=== PATIENT | male | born 2000 | race Caucasian/White ===

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

== ENCOUNTER → 2021-04-17 | Outpatient (REF) | payer OTHER | LOC: M LAB REF 12:54 | PROVIDERS: ATTEND Specialist | DX: B34.9 Viral infection, unspecified (principal) ==

== ENCOUNTER → 2021-04-24 | Outpatient (REF) | payer OTHER | LOC: M LAB REF 12:55 | PROVIDERS: ATTEND Specialist | DX: R11.10 Vomiting, unspecified (principal) ==

== ENCOUNTER 2023-12-27 06:48 | Emergency (ER) | payer BC, OTHER ==
[~2023-12-27] VITALS: Ht 177.8 cm; Wt 162.3 kg
[2023-12-27] MEDS ORDERED: diphenhydrAMINE 50MG/ML VIAL IV ONE (08:00)
[2023-12-27] MEDS ORDERED: KETOROLAC 30 MG/ML 1ML VIAL IV ONE (08:00)
[2023-12-27] MEDS ORDERED: NS 1,000 ML IV ONE ×2 (08:00)
[2023-12-27] MEDS ORDERED: METOCLOPRAMIDE INJ 10MG/2ML VIAL IV ONE (08:00)
[2023-12-27 09:12] LABS: BASO # 0.1 10^3/uL (0.0-0.2); EOS # 0.3 10^3/uL (0.0-0.5); EOS % 5.1 % (0.0-3.0); HEMATOCRIT 44.3 % (42.0-52.0); LYMPH # 1.5 10^3/uL (1.5-5.0); LYMPH % 23.7 % (24.0-44.0); MEAN CORPUSCULAR HEMOGLOBIN 29.6 pg (27.0-33.0); MEAN CORPUSCULAR HGB CONC 33.9 g/dl (32.0-36.5); MEAN CORPUSCULAR VOLUME 87.4 fl (80.0-96.0); MONO # 0.5 10^3/uL (0.0-0.8); MONO % 8.3 % (2.0-8.0); NEUTROPHILS # 3.8 10^3/uL (1.5-8.5); NEUTROPHILS % 61.6 % (36.0-66.0); PLATELET COUNT, AUTOMATED 232 10^3/uL (150-450); RED BLOOD COUNT 5.07 10^6/uL (4.30-6.10); WHITE BLOOD COUNT 6.1 10^3/uL (4.0-10.0)
[2023-12-27 09:18] LABS: ERYTHROCYTE SEDIMENTATION RATE 12 mm/hr (0-15)
[2023-12-27 09:35] LABS: LIPASE 47 U/L (12-53)
[2023-12-27 09:38] LABS: ALKALINE PHOSPHATASE 64 U/L (46-116); ALT/SGPT 56 U/L (7.0-40); AST/SGOT 33 U/L (<34); BILIRUBIN,DIRECT 0.4 MG/DL (<0.4); BILIRUBIN,TOTAL 1.1 MG/DL (0.3-1.2); BLOOD UREA NITROGEN 14 MG/DL (9-23); CALCIUM LEVEL 9.2 MG/DL (8.5-10.1); CARBON DIOXIDE LEVEL 28 MMOL/L (20-31); CHLORIDE LEVEL 106 MMOL/L (98-107); CREATININE FOR GFR 0.85 MG/DL (0.70-1.30); GLOMERULAR FILTRATION RATE > 60.0 (>60); GLUCOSE, FASTING 101 MG/DL (60-100); POTASSIUM SERUM 4.5 MMOL/L (3.5-5.1); SODIUM LEVEL 138 MMOL/L (136-145); TOTAL PROTEIN 7.4 G/DL (5.7-8.2)
[2023-12-27 09:40] LABS: FREE T4 1.25 NG/DL (0.89-1.76); THYROID STIMULATING HORMONE 4.473 uIU/ML (0.55-4.78)
[2023-12-27] MEDS ORDERED: ISOVUE-370 76% 100ML VIAL As Ordered ONE (09:52)
[2023-12-27] MEDS ORDERED: ONDA4TAB6 PO (10:30)
[2023-12-27] MEDS ORDERED: ONDANSETRON 4MG 2ML VIAL IV ONE (10:30)
[2023-12-27 11:20] VITALS: BP 118/68; TEMP 97.8; O2SAT 99
== END 2023-12-27 11:22 | disposition home or self-care (01) ==
LOC: M ED 06:48
DX: R51.9 Headache, unspecified (principal); R11.2 Nausea with vomiting, unspecified; R19.7 Diarrhea, unspecified; R05.9 Cough, unspecified; Z90.89 Acquired absence of other organs; Z88.1 Allergy status to other antibiotic agents; Z11.52 Encounter for screening for COVID-19
CPT/HCPCS: 70450; 70496; 70498; 72125; 80048; 80076; 83690; 84439; 84443; 85025; 85652; 87486; 87581; 87633; 87798; 96361; 96374; 96375; 99284; J1200; J1885; J2405; J2765; Q9967

== ENCOUNTER → 2024-11-28 | Outpatient (REF) | payer BC ==
[~2024-11-28] MED LIST: ONDA-282 PO; PEPC1TAB5 PO
== END ==
LOC: M LAB REF 13:35
PROVIDERS: ATTEND Physician Assistant Medical
DX: B34.9 Viral infection, unspecified (principal)

== ENCOUNTER 2024-11-29 20:53 | Emergency (ER) | payer BC ==
[~2024-11-29] VITALS: Ht 182.9 cm; Wt 117.9 kg
[~2024-11-29 20:53] MED LIST changes: -PEPC1TAB5 PO
[2024-11-29 21:28] LABS: BASO % 0.4 % (0.0-1.0); EOS % 0.2 % (0.0-3.0); HEMATOCRIT 41.8 % (42.0-52.0); HEMOGLOBIN 14.4 g/dl (13.5-17.5); LYMPH # 1.2 10^3/uL (1.5-5.0); LYMPH % 12.9 % (24.0-44.0); MEAN CORPUSCULAR HEMOGLOBIN 29.6 pg (27.0-33.0); MEAN CORPUSCULAR HGB CONC 34.4 g/dl (32.0-36.5); MONO # 1.2 10^3/uL (0.0-0.8); MONO % 13.4 % (2.0-8.0); NEUTROPHILS # 6.7 10^3/uL (1.5-8.5); NEUTROPHILS % 72.9 % (36.0-66.0); PLATELET COUNT, AUTOMATED 248 10^3/uL (150-450); RED BLOOD COUNT 4.86 10^6/uL (4.30-6.10); WHITE BLOOD COUNT 9.2 10^3/uL (4.0-10.0)
[2024-11-29 21:56] LABS: LIPASE 46 U/L (12-53)
[2024-11-29 21:57] LABS: AMYLASE 29 U/L (30-118)
[2024-11-29 21:58] LABS: ALBUMIN 3.8 G/DL (3.2-5.2); ALKALINE PHOSPHATASE 111 U/L (40-129); ALT/SGPT 43 U/L (7.0-40); AST/SGOT 32 U/L (<34); BILIRUBIN,DIRECT 1.5 MG/DL (<0.4); BILIRUBIN,TOTAL 3.1 MG/DL (0.3-1.2); BLOOD UREA NITROGEN 23 MG/DL (9-23); CALCIUM LEVEL 9.4 MG/DL (8.5-10.1); CARBON DIOXIDE LEVEL 23 MMOL/L (20-31); CHLORIDE LEVEL 101 MMOL/L (98-107); CREATININE FOR GFR 0.97 MG/DL (0.70-1.30); GLOMERULAR FILTRATION RATE > 60.0 (>60); GLUCOSE, FASTING 102 MG/DL (60-100); POTASSIUM SERUM 4.1 MMOL/L (3.5-5.1); SODIUM LEVEL 136 MMOL/L (136-145); TOTAL PROTEIN 8.3 G/DL (5.7-8.2)
[2024-11-29] MEDS: ONDANSETRON 4MG ORAL DISINTEGRATING TAB PO ONE (23:33)
[2024-11-30] MEDS: MAALOX 30 ML SUSP *UDC PO ONE (00:17)
[2024-11-30] MEDS ORDERED: PEPC1TAB5 PO (00:35)
[2024-11-30] MEDS: ACETAMINOPHEN 325 MG TAB PO ONE (00:42)
[2024-11-30 00:45] VITALS: BP 106/61; TEMP 101; O2SAT 99
== END 2024-11-30 00:47 | disposition home or self-care (01) ==
LOC: M ED 20:53
DX: K76.0 Fatty (change of) liver, not elsewhere classified (principal); R11.2 Nausea with vomiting, unspecified; R19.7 Diarrhea, unspecified; Z88.1 Allergy status to other antibiotic agents; Z79.899 Other long term (current) drug therapy

== ENCOUNTER → 2024-11-30 | Outpatient (REF) | payer BC ==
[~2024-11-30] MED LIST changes: +PEPC1TAB5 PO
== END ==
LOC: M LAB REF 14:57
PROVIDERS: ATTEND Physician Assistant Medical
DX: R19.7 Diarrhea, unspecified (principal)

== ENCOUNTER 2025-07-30 00:22 | Emergency (ER) | payer BC ==
[~2025-07-30] VITALS: Ht 182.9 cm; Wt 117.3 kg
[2025-07-30] MEDS: ACETAMINOPHEN 325 MG TAB PO ONE (06:40)
[2025-07-30] MEDS: KETOROLAC 30 MG/ML 1 ML VIAL IM ONE (06:41)
[2025-07-30] MEDS ORDERED: IBUP80TA PO (08:09)
[2025-07-30] MEDS ORDERED: ACET-907 PO (08:09)
[2025-07-30 08:31] VITALS: BP 124/76; TEMP 98.1; O2SAT 100
== END 2025-07-30 08:26 | disposition home or self-care (01) ==
LOC: M ED 00:22
DX: S93.402A Sprain of unspecified ligament of left ankle, initial encounter (principal); Y92.9 Unspecified place or not applicable; Y93.9 Activity, unspecified; Y99.9 Unspecified external cause status; W01.0XXA Fall on same level from slipping, tripping and stumbling without subsequent striking against object, initial encounter; R22.42 Localized swelling, mass and lump, left lower limb; Z88.1 Allergy status to other antibiotic agents; Z79.1 Long term (current) use of non-steroidal anti-inflammatories (NSAID)
CPT/HCPCS: 73610; 96372; 99284; J1885